=== PATIENT | female | born 1985 | race Caucasian/White ===

== ENCOUNTER 2023-08-05 19:59 | Outpatient (REF) | payer BC, SELFPAY ==
[2023-08-12 22:06] LABS: Age Gdln ACOG Testing Note (.); HPV Aptima Positive (Negative); HPV Genotype 16 Negative (Negative); HPV Genotype 18,45 Negative (Negative); IGP, Aptima HPV, rfx 16/18,45 Note (.)
== END 2023-08-05 20:00 | disposition home or self-care (01) ==
LOC: LAB 19:59
PROVIDERS: Visit Provider Obstetrics & Gynecology
DX: Z12.4 Encounter for screening for malignant neoplasm of cervix (principal)
CPT/HCPCS: 87624; 87625; G0145

== ENCOUNTER 2023-10-17 13:03 | Outpatient (OUT) | payer SELFPAY ==
--- NOTE | 2023-10-17 13:08 | XR_ITS ---
The [address] [id number] Patient Name: MOON MALIN MRN: [id number] date: 1985 Sex: F Assigned Patient Location: [facility] Current Patient Location: Accession/Order Number: [id number] Exam Date: 10/17/2023 13:25 Report Date: 10/20/2023 02:03 At the request of: ANNALEE LR Procedure: XR abdomen 1V EXAMINATION: XR abdomen 1V HISTORY: Constipation, Bloating COMPARISON: No relevant comparison available. FINDINGS: BOWEL GAS PATTERN: No abnormal dilation or deviation. CALCIFICATIONS: None significant. OTHER: IUD and surgical clips within pelvis. XR/XR abdomen 1V IMPRESSION: 1. Normal bowel gas pattern no suspicious findings. 2. No appreciable urinary tract calculi. Pelvic calcifications favor phleboliths. Electronically authenticated by: HODAN VASQUEZ Date: 10/20/2023 02:03
== END 2023-10-17 13:04 | disposition home or self-care (01) ==
LOC: RAD 13:03
PROVIDERS: Visit Provider Internal Medicine
DX: R14.0 Abdominal distension (gaseous) (principal); K59.00 Constipation, unspecified
CPT/HCPCS: 74018

== ENCOUNTER 2024-08-10 18:58 | Outpatient (REF) | payer SELFPAY ==
--- OUTSIDE RECORDS SUMMARY | 2024-08-10 19:05 | XMS_ITS | CCD ---
Demographics Address [address] [place] [address] Mobile Phone Home Phone Preferred Language en Marital Status Mormon Affiliation Unknown Race White Ethnic Group Not or Lati no Author Organization [facility] Care Team Providers Care Coal Unloader Name Role Phone TANNER ., DR CORTEZ Admitting Unavailable TANNER ., DR CORTEZ Attending Unavailable TANNER ., DR CORTEZ Consulting Unavailable TANNER ., DR CORTEZ Admitting Unavailable TANNER ., DR CORTEZ Attending Unavailable TANNER ., DR CORTEZ Consulting Unavailable Joshua JUSTICE, William Lynn Primary Care Provider Medications Current Medications Medication Drug Class(es) Dates Sig (Normalized) Sig (Original) azithromycin 250 mg oral tablet (1 source) Macrolide Antimicrobial Start: 12-12-2023 End: 12-16-2023 azithromycin (ZITHROMAX) 250 mg tablet Take 2 tablets the first day, then 1 tablet daily for 4 days. 6 tablet 0 12/12/2023 12/16/2023 Active levonorgestrel 0.946577 mg/hr intrauterine system (1 source) Progestin, Progestin-containin g Intrauterine Device levonorgestreL (MIRENA) 20 mcg/24 hours (6 yrs) 52 mg IUD 1 each by intrauterine route once. 0 Active valACYclovir 1000 mg oral tablet (1 source) Herpesvirus Nucleoside Analog DNA Polymerase Inhibitor, Herpes Simplex Virus Nucleoside Analog DNA Polymerase Inhibitor, Herpes Zoster Virus Nucleoside Analog DNA Polymerase Inhibitor Start: 07-01-2023 take 2 tablets by mouth in the morning, then take 2 tablets by mouth at bedtime valACYclovir (VALTREX) 1000 mg tablet Take 2 tablets (2,000 mg total) by mouth in the morning and 2 tablets (2,000 mg total) before bedtime. For 1 day.. 4 tablet 2 07/01/2023 Active Problems Active Problems Problem Classification Problem Date Documented Da te Episodic/Chronic Other screening for suspected conditions (not mental disorders or infectious disease) (4 sources) Encounter for screening for malignant neoplasm of cervix; Translations: [ENC SCREENING MALIG NEOPLASM CERV] Onset: 02-03-2023 Episodic Past or Other Problems Problem Classification Problem Date Documented Date Episodic/Chronic Immunizations and screening for infectious disease (1 source) Encounter for screening for human papillomavirus (HPV); Translations: [ENC SCREENING HUMAN PAPILLOMAVIRUS] Onset: 09-10-2022 Episodic Mood disorders (1 source) Mood disorders Onset: 06-19-2021 06-19-2021 Results Test Name Value Interpretation Reference Range Facil ity PAP ACOG PANEL 2: 30 to 65on 02-12-2023 . . Normal [facility] Comment on above: Result Comment: Perf ormed at: WB Performed By: #### [id number] #### [facility] [address] [address] [address] Jarad Reddy Age Gdln ACOG Testing 30- Normal [facility] Comment on above: Performed By: #### [id number] #### [facility] [address] [address] [address] Jarad Reddy DIAGNOSIS: Comment Normal [facility] Comment on above: Result Comment: NEGA TIVE FOR INTRAEPITHELIAL LESION OR MALIGNANCY. Performed at: WB Performed By: #### [id number] #### [facility] [address] [address] [address] Jarad Reddy HPV Aptima Positive Abnormal Negative [facility] Comment on above: Result Comment: This nucleic acid amplification test detects fourteen high-risk HPV types (16,18,31,33,35,39,45,51,52,56,58,59,66,68) without differentiation. Performed at: =G Performed By: #### [id number] #### [facility] [address] [address] [address] Jarad Reddy HPV Genotype 16 Negative Normal Negative [facility] Comment on above: Performed By: #### [id number] #### [facility] [address] [address] [address] Jarad Reddy HPV Genotype 18,45 Negative Normal Negative [facility] Comment on above: Performed By: #### [id number] #### [facility] [address] [address] [address] Jarad Reddy HPV Genotype Reflex Comment Normal [facility] Comment on above: Result Comment: Wilma ramirez, see HPV Genotype results. Performed at: WB Performed By: #### [id number] #### [facility] [address] [place] [address] Dr. Jarad Reddy Methodology: Comment [facility] Comment on above: Result Comment: This liquid based ThinPrep(R) pap test was screened with the use of an image guided system. Performed at: WB Performed By: #### [id number] #### [facility] [address] [place] [address] Dr. Jarad Reddy Note: Comment Normal [facility] Comment on above: Result Comment: The Pap smear is a screening test designed to aid in the detection of premalignant and malignant conditions of the uterine cervix. It is not a diagnostic procedure and should not be used as the sole means of detecting cervical cancer. Both false-positive and false-negative reports do occur. . Performed at: WB Performed By: #### [id number] #### [facility] [address] [place] [address] Dr. Jarad Reddy Performed by: Comment Normal [facility] Comment on above: Result Comment: Pastor Zepeda, Photogravure Press Operator (ASCP) Performed at: WB Performed By: #### [id number] #### [facility] [address] [place] [address] Dr. Jarad Reddy Specimen adequacy: Comment Normal [facility] Comment on above: Result Comment: Sati sfactory for evaluation. Endocervical and/or squamous metaplastic cells (endocervical component) are present. Performed at: WB Performed By: #### [id number] #### [facility] [address] [place] [address] Dr. Jarad Reddy Pap IG, rfx Aptima HPV ASCU + Ct/Ngon 09-18-2022 . . Normal [facility] Comment on above: Result Comment: Perf ormed at: WB Performed By: #### P [id number] #### [facility] [address] [place] [address] Dr. Jarad Reddy Chlamydia, Nuc. Acid Amp Negative Normal Negative [facility] Comment on above: Result Comment: Perf ormed at: =G Performed By: #### P [id number] #### [facility] [address] [place] [address] Dr. Jarad Reddy DIAGNOSIS: Comment Abnormal [facility] Comment on above: Result Comment: EPIT HELIAL CELL ABNORMALITY. ATYPICAL SQUAMOUS CELLS OF UNDETERMINED SIGNIFICANCE (ASC-US). Performed at: WB Performed By: #### P [id number] #### [facility] [address] [place] [address] Dr. Jarad Reddy Electronically signed by: Comment Normal [facility] Comment on above: Result Comment: Talia Russo MD, Pathologist Performed at: WB Performed By: #### P [id number] #### [facility] [address] [place] [address] Dr. Jarad Reddy Gonococcus, Nuc. Acid Amp Negative Normal Negative [facility] Comment on above: Result Comment: Perf ormed at: =G Performed By: #### P [id number] #### [facility] [address] [place] [address] Dr. Jarad Reddy HPV Aptima Positive Abnormal Negative [facility] Comment on above: Result Comment: This nucleic acid amplification test detects fourteen high-risk HPV types (16,18,31,33,35,39,45,51,52,56,58,59,66,68) without differentiation. Performed By: #### P [id number] #### [facility] [address] [place] [address] Dr. Jarad Reddy Methodology: Comment Normal [facility] Comment on above: Result Comment: This liquid based ThinPrep(R) pap test was screened with the use of an image guided system. Performed at: WB Performed By: #### P APHR8A #### [facility] [address] [place] [address] Dr. Jarad Reddy Note: Comment Normal [facility] Comment on above: Result Comment: The Pap smear is a screening test designed to aid in the detection of premalignant and malignant conditions of the uterine cervix. It is not a diagnostic procedure and should not be used as the sole means of detecting cervical cancer. Both false-positive and false-negative reports do occur. . Performed at: WB Performed By: #### P [id number] #### [facility] [address] [address] [address] Jarad Reddy Pathologist Provided ICD10 Comment [facility] Comment on above: Result Comment: [id number]. [id number] Performed at: WB Performed By: #### P APHR8A #### [facility] [address] [address] [address] Jarad Reddy Performed by: Comment Normal [facility] Comment on above: Result Comment: Vu Tierney, Photogravure Press Operator Performed at: BA Performed By: #### P [id number] #### [facility] [address] [address] [address] Jarad Reddy Reflex Criteria: Comment Normal [facility] Comment on above: Result Comment: See below for HPV testing results. . Performed at: WB Performed By: #### P [id number] #### [facility] [address] [address] [address] Jarad Reddy Specimen adequacy: Comment Normal [facility] Comment on above: Result Comment: Sati sfactory for evaluation. Endocervical and/or squamous metaplastic cells (endocervical component) are present. Performed at: WB Performed By: #### P [id number] #### [facility] [address] [address] [address] Jarad Reddy Encounters Encounter Date Encounter Type Care Provider Facility Start: 12-12-2023 Telephone encounter William carbone MD Work Phone: [facility] Start: 02-03-2023 End: 02-03-[address] DANA HART . Facility:[facility] Start: 09-10-2022 Encounter for cervic al smear to confirm findings of recent normal smear following initial abnormal smear DR DANA HART . [facility] Start: 09-09-2022 End: 09-09-[address] DANA HART . Facility:[facility] Start: 09-09-2022 End: 09-09-2022 Encounter for cervical smear to confirm findings of recent normal smear following initial abnormal smear DR DANA HART . Facility: Procedures Date Procedure Procedure Detail Performing Clinician Start: 06-19-2021 Adult depression screening assessment William Lewis MD Work Phone: Plan of Treatment Date Care Activity Detail Author Start: 05-29-2032 DTaP,Tdap and Td Vaccines (8 - Td or Tdap) DTaP,Tdap and Td Vaccines (8 - Td or Tdap) [facility] Start: 10-10-2024 Adult BMI Screening Adult BMI Screen ing [facility] Start: 10-10-2024 Tobacco Screening Tobacco Screening [facility] Start: 07-11-2023 COVID-19 Vaccine ( season) COVID-19 Vaccine () [facility] Start: 07-11-2023 Influenza vaccination Influenza Vacc ine [facility] Start: 06-19-2022 Depression Screening Depression Scre ening [facility] Start: 2007 Screening for malign ant neoplasm of cervix Pap Smear [facility] Immunizations Immunization Date Immunization Notes Care Provider Fa cristian 03-06-2021 COVID-19, mRNA, LNP- S, PF, 100mcg/0.5mL Dose William Lewis MD Work Phone: [facility] 02-06-2021 COVID-19, mRNA, LNP- S, PF, 100mcg/0.5mL Dose William Lewis MD Work Phone: [facility] 08-02-2015 influenza virus vaccine, unspecified formulation William Lewis MD Work Phone: [facility] Payers Date Payer Category Payer Unknown [id number] 1985 Unknown [id number] 1958 Unknown [id number] Social History Date Type Detail Facility Start: 06-19-2021 Tobacco smoking stat [facility] Never smoked tobacco [facility] Start: 06-19-2021 Tobacco use and exposure Smokeless tobacco non-user [facility] Start: 10-10-2023 Alcohol intake Current drinke r of alcohol (finding) [facility] Start: 12-21-2020 End: 10-10-2023 History of Social function [facility] Start: 12-21-2020 End: 10-10-2023 Tobacco use panel [facility] Adolescent depressio n screening assessment 0 [facility] Start: 1985 Sex Assigned At Not on file P [facility] Note 12-12-2023 Telephone Encounter - Alina Dominguez - 12/12/2023 1:42 PM ESTTelephone Encounter - William Lewis MD - 12/12/2023 1:42 PM ESTTelephone Encounter - Alina Dominguez - 12/12/2023 1:42 PM EST Note Date & Type Note Facility 12-12-2023 Miscellaneous Notes Formattin g of this note might be different from the original. Lakshmi called and is wondering if something could be called in for her since she just had her daughter Nimco Acuna in yesterday, and she thinks she has the same thing as her, she woke up with a terrible sore throat today. [facility] [place] if you can do that Please advise Script sent. Spoke with Lakshmi and she was appreciative of the call and the medicine being called in. documented in this encounter [facility] Telephone encounter Note 12-12-2023 Telephone Encounter - Alina Dominguez - 12/12/2023 1:42 PM EST Note Date & Type Note Facility 12-12-2023 Telephone encount er Note Lakshmi called and is wondering if something could be called in for her since she just had her daughter Nimco Acuna in yesterday, and she thinks she has the same thing as her, she woke up with a terrible sore throat today. [facility] [place] if you can do that Please advise [facility] Telephone encounter Note 12-12-2023 Telephone Encounter - William Lewis MD - 12/12/2023 1:42 PM EST Note Date & Type Note Facility 12-12-2023 Telephone encount er Note Script sent. [facility] Telephone encounter Note 12-12-2023 Telephone Encounter - Alina Dominguez - 12/12/2023 1:42 PM EST Note Date & Type Note Facility 12-12-2023 Telephone encounter Note Spoke with Lakshmi and she was appreciative of the call and the medicine being called in. [facility] Instructions Note Date & Type Note Facility Instructions Not on filedocumented in this en counter [facility] Summary Purpose Family History No Family History Records Found Advance Directives No Advanced Directives Records Found Additional Source Comments INFORMATION SOURCE (unrecogn ized section and content) DATE CREATED AUTHOR 03/15/2023 [facility] Teams (unrecognized sec tion and content) Coal Unloader Relationship Specialty Start Date End Date William Lewis MD [address] [place] [address], [address] [place] [address] PCP - General Pediatrics 09/28/19 FOR RECORDS PERTAINING TO PATIENTS WHO ARE OR HAVE BEEN ENROLLED IN A CHEMICAL DEPENDENCY/SUBSTANCEABUSE PROGRAM, SOME INFORMATION MAY BE OMITTED. This clinical summary was aggregated from multiple sources. Caution should be exercised in using it in the provision of clinical care. This summary normalizes information from multiple sources, and as a consequence, information in this document may materially change the coding, format and clinical context of patient data. In addition, data may be omitted in some cases. CLINICAL DECISIONS SHOULD BE BASED ON THE PRIMARY CLINICAL RECORDS. [facility]. provides no warranty or guarantee of the accuracy or completeness of information in this document.
[2024-08-17 12:13] LABS: Age Gdln ACOG Testing Note (.); HPV Aptima Positive (Negative); IGP, Aptima HPV, rfx 16/18,45 Note (.)
== END 2024-08-10 18:59 | disposition home or self-care (01) ==
LOC: LAB 18:58
PROVIDERS: Visit Provider Obstetrics & Gynecology
DX: Z01.419 Encounter for gynecological examination (general) (routine) without abnormal findings (principal)
CPT/HCPCS: 87624; 88175

== ENCOUNTER 2024-08-30 11:36 | Outpatient (REF) | payer SELFPAY ==
--- OUTSIDE RECORDS SUMMARY | 2024-09-07 11:44 | XMS_ITS | CCD ---
Author Organization [facility] Care Team Providers Care Conference Interpreter Name Role Phone WAGNER ., DR CORTEZ Admitting Unavailable WAGNER ., DR CORTEZ Attending Unavailable WAGNER ., DR CORTEZ Consulting Unavailable WAGNER ., DR CORTEZ Admitting Unavailable WAGNER ., DR CORTEZ Attending Unavailable WAGNER ., DR CORTEZ Consulting Unavailable William Lewis MD Primary Care Provider William Lewis MD Primary Care Provider [phone] DANA EDWARD Attending Unavailable DANA EDWARD Attending Unavailable Medications Current Medications Medication Drug Class(es) Dates Sig (Normalized) Sig (Original) azithromycin 250 mg oral tablet (1 source) Macrolide Antimicrobial Start: 12-12-2023 End: 12-16-2023 azithromycin (ZITHROMAX) 250 mg tablet Take 2 tablets the first day, then 1 tablet daily for 4 days. 6 tablet 0 12/12/2023 12/16/2023 Active levonorgestrel 0.930927 mg/hr intrauterine system (1 source) Progestin, Progestin-containin [...] Classification Problem Date Documented Da te Episodic/Chronic Cancer of cervix (1 source) Atypical squamous cells of undetermined significance on cervical Papanicolaou smear; Translations: [Atypical squamous cells of undetermined significance on cytologic smear of cervix (ASC-US)] 08-30-2024 Episodic Other screening for suspected conditions (not mental [...] Results Test Name Value Interpretation Reference Range Facility Colposcopyon 08-31-2024 Dana Edward DO 08/31/2024 9:22 AM Colposcopy Date/Time: 08/31/2024 8:51 AM Performed by: Dana Edward DO Authorized by: Dana Edward DO Procedure location: cervix Consent: Patient questions answered: yes Risks and benefits of the procedure and its alternatives discussed: yes Procedural risks discussed: Bleeding and repeat procedure Consent obtained: Written Consent given by: Patient Indication: Cervical indication(s): HPV 16 and ASCUS Pre-procedure: Speculum was placed in the vagina: yes Prep solution(s): acetic acid Procedure: Colposcopy with: colposcopy only and endocervical curettage Biopsy taken: no Cervix visibility: fully visualized Cervical impression: normal/benign Ferric subsulfate solution applied: no Tampon inserted: no Post-procedure: Patient tolerance of procedure: Patient tolerated the procedure well with no immediate complications Instructions and paperwork completed: yes Educational handouts given: no [facility] HCG ( test) Ql (U)o n 08-30-2024 Interpretation and review of laboratory results Normal [facility] Preg Test, Ur Negative [facility] IGP,APTIMA HPV,AGE GDLNon AGE GDLN ACOG TESTING Note . [facility] Comment on above: TESTS RESULT FLAG UN ITS REF RANGE LAB Clinician Provided Cytology Information Source.............Cervix;Endocervix No. of containers..01 ThinPrep Vial Age Odello GOODOG Sonia... 31 01 FLAG LEGEND: L-Low Normal,H-High Normal,LL-Alert Low,HH-Alert High <-Panic Low,>-Panic High,A-Abnormal,AA-Critical Abnormal Performed at: 01 =G [address] [address] Lyubov Preciado MD, HPV APTIMA Positive Abnormal Negative [facility] Comment on above: This nucleic acid am plification test detects fourteen high- risk HPV types (16,18,31,33,35,39,45,51,52,56,58,59,66,68) without differentiation. Performed at: =G - [address] [id number] Digital Product Specialist: Lyubov Preciado MD, Phone: [phone] Performed at: - [address] [id number] Digital Product Specialist: Lyubov Preciado MD, Phone: [phone] IGP, APTIMA HPV, RFX 16/18,45 Note Abnormal . [facility] Comment on above: TESTS RESULT FLAG UN ITS REF RANGE LAB DIAGNOSIS: [A] 02 EPITHELIAL CELL ABNORMALITY. ATYPICAL SQUAMOUS CELLS OF UNDETERMINED SIGNIFICANCE (ASC-US). Recommendation: [A] 02 Suggest follow up as clinically appropriate. Specimen adequacy: 02 Satisfactory for evaluation. Endocervical and/or squamous metaplastic cells (endocervical component) are present. Performed by: 02 Erickson Zepeda, Family And Consumer Science Professor (ASC) Electronically si... Tony Pandya MD, Pathologist . 02 Pathologist ICD10: 02 R87.610 Note: Note 02 The Pap smear is a screening test designed to aid in the detection of premalignant and malignant conditions of the uterine cervix. It is not a diagnostic procedure and should not be used as the sole means of detecting cervical cancer. Both false-positive and false-negative reports do occur. Test Methodology: Note 02 This liquid based ThinPrep(R) pap test was screened with the use of an image guided system. HPV Genotype Reflex Note 02 Criteria not met, HPV Genotype not performed. FLAG LEGEND: L-Low Normal,H-High Normal,LL-Alert Low,HH-Alert High <-Panic Low,>-Panic High,A-Abnormal,AA-Critical Abnormal Performed at: [address] [place] [address] Lyubov Preciado MD, Interpretation and review of laboratory results Abnormal [facility] BRUSH-SPATULA CERVIX ENDOCERVIX [facility] PAP ACOG PANEL 2: 30 to 65on 02-12-2023 . . Normal [facility] Comment on above: Result Comment: Perf ormed at: WB Performed By: #### [id number] #### [facility] Laboratory [address] [address] [address] Jarad Reddy Age Gdln ACOG Testing 30-65 Normal [facility] Comment on above: Performed By: #### [id number] #### [facility] [address] [address] [address] Jarad Reddy DIAGNOSIS: Comment Normal [facility] Comment on above: Result Comment: NEGA TIVE FOR INTRAEPITHELIAL LESION OR MALIGNANCY. Performed at: WB Performed By: #### 4 [id number] #### [facility] [address] [address] [address] Jarad Reddy HPV Aptima Positive Abnormal Negative [facility] Comment on above: Result Comment: This nucleic acid amplification test detects fourteen high-risk HPV types (16,18,31,33,35,39,45,51,52,56,58,59,66,68) without differentiation. Performed at: =G Performed By: #### 4 [id number] #### [facility] [address] [address] [address] Jarad Reddy HPV Genotype 16 Negative Normal Negative [facility] Comment on above: Performed By: #### 4 [id number] #### [facility] [address] [address] [address] Jarad Reddy HPV Genotype 18,45 Negative Normal Negative [facility] Comment on above: Performed By: #### 4 [id number] #### [facility] [address] [address] [address] Jarad Reddy HPV Genotype Reflex Comment Normal [facility] Comment on above: Result Comment: Wilma ramirez, see HPV Genotype results. Performed at: WB Performed By: #### 4 [id number] #### [facility] [address] [address] [address] Jarad Reddy Methodology: Comment Normal [facility] Comment on above: Result Comment: This liquid based ThinPrep(R) pap test was screened with the use of an image guided system. Performed at: WB Performed By: #### [id number] #### [facility] [address] [place] [address] Dr. Jarad Reddy Note: Comment Normal [facility] Comment on above: Result Comment: The Pap smear is a screening test designed to aid in the detection of premalignant and malignant conditions of the uterine cervix. It is not a diagnostic procedure and should not be used as the sole means of detecting cervical cancer. Both false-positive and false-negative reports do occur. . Performed at: WB Performed By: #### [id number] #### [facility] [address] [place] [address] Dr. Jarad Reddy Performed by: Comment Normal [facility] Comment on above: Result Comment: Pastor Zepeda, Family And Consumer Science Professor (ASCP) Performed at: WB Performed By: #### 4 [id number] #### [facility] [address] [place] [address] Dr. Jarad Reddy Specimen adequacy: Comment Normal [facility] Comment on above: Result Comment: Sati sfactory for evaluation. Endocervical and/or squamous metaplastic cells (endocervical component) are present. Performed at: WB Performed By: #### 4 [id number] #### [facility] [address] [place] [address] Dr. Jarad Reddy Pap IG, rfx Aptima HPV ASCU + Ct/Ngon 09-18-2022 . . Normal [facility] Comment on above: Result Comment: Perf ormed at: WB Performed By: #### P APHR8A #### [facility] [address] [place] [address] Dr. Jarad Reddy Chlamydia, Nuc. Acid Amp Negative Normal Negative [facility] Comment on above: Result Comment: Perf ormed at: =G Performed By: #### P APHR8A #### [facility] [address] [place] [address] Dr. Jarad Reddy DIAGNOSIS: Comment Abnormal [facility] Comment on above: Result Comment: EPIT HELIAL CELL ABNORMALITY. ATYPICAL SQUAMOUS CELLS OF UNDETERMINED SIGNIFICANCE (ASC-US). Performed at: WB Performed By: #### P APHR8A #### [facility] [address] [place] [address] Dr. Jarad Reddy Electronically signed by: Comment Normal [facility] Comment on above: Result Comment: Talia Russo MD, Pathologist Performed at: WB Performed By: #### P APHR8A #### [facility] [address] [place] [address] Dr. Jarad Reddy Gonococcus, Nuc. Acid Amp Negative Normal Negative [facility] Comment on above: Result Comment: Perf ormed at: =G Performed By: #### P APHR8A #### [facility] [address] [place] [address] Dr. Jarad Reddy HPV Aptima Positive Abnormal Negative [facility] Comment on above: Result Comment: This nucleic acid amplification test detects fourteen high-risk HPV types (16,18,31,33,35,39,45,51,52,56,58,59,66,68) without differentiation. Performed By: #### P APHR8A #### [facility] [address] [place] [address] Dr. Jarad Reddy Methodology: Comment Normal [facility] Comment on above: Result Comment: This liquid based ThinPrep(R) pap test was screened with the use of an image guided system. Performed at: WB Performed By: #### P APHR8A #### [facility] [address] [place] [address] Dr. Jarad Reddy Note: Comment Normal [facility] Comment on above: Result Comment: The [...] WB Performed By: #### P APHR8A #### [facility] [address] [place] [address] Dr. Jarad Reddy Pathologist Provided ICD10 Comment Normal [facility] Comment on above: Result Comment: R87. 610 Performed at: WB Performed By: #### P APHR8A #### [facility] [address] [place] [address] Dr. Jarad Reddy Performed by: Comment Normal [facility] Comment on above: Result Comment: Vu Tierney, Family And Consumer Science Professor Performed at: BA Performed By: #### P APHR8A #### [facility] [address] [address] [address] Jarad Reddy Reflex Criteria: Comment Normal [facility] Comment on above: Result Comment: See below for HPV testing results. . Performed at: WB Performed By: #### P APHR8A #### [facility] [address] [address] [address] Jarad Reddy Specimen adequacy: Comment Normal [facility] Comment on above: Result Comment: Sati sfactory for evaluation. Endocervical and/or squamous metaplastic cells (endocervical component) are present. Performed at: WB Performed By: #### P APHR8A #### [facility] [address] [address] [address] Jarad Reddy Vital Signs Date Time Vital Sign Value Performing Clinician Faci lity 08-30-2024 16:25-0400 Body mass index (BMI) [Ratio] 23.63 kg/m2 Dana Wagner DO Work Phone: [facility] 08-30-2024 16:25-0400 Body weight 64.41 kg Dana Wagner DO Work Phone: [facility] 08-30-2024 16:25-0400 Diastolic blood pressure 72 mm[Hg] Dana Wagner DO Work Phone: [facility] 08-30-2024 16:25-0400 Systolic blood pressure 122 mm[Hg] Dana Wagner DO Work Phone: [facility] 08-10-2024 15:20-0400 Body height 165.1 cm Dana Wagner DO Work Phone: [facility] 08-10-2024 15:20-0400 Body mass index (BMI) [Ratio] 22.47 kg/m2 Dana Wagner DO Work Phone: [facility] 08-10-2024 15:20-0400 Body weight 61.24 kg Dana Wagner DO Work Phone: [facility] 08-10-2024 15:20-0400 Diastolic blood pressure 82 mm[Hg] Dnaa Wagner DO Work Phone: [facility] 08-10-2024 15:20-0400 Systolic blood pressure 122 mm[Hg] Dana Wagner DO Work Phone: [facility] Encounters Encounter Date Encounter Type Care Provider Facility Start: 08-30-2024 End: 08-30-2024 Patient encounter procedure Dana Wagner DO Work Phone: [facility] Comment on above: ASCUS with positive high risk HPV cervical Start: 08-30-2024 End: 08-30-2024 ambulatory DANA WAGNER Not Available Start: 08-17-2024 End: 08-17-2024 Telephone encounter Bambi Sigala HENRI Work Phone: [facility] Start: 08-10-2024 End: 08-10-2024 Patient encounter procedure Dana Wagner DO Work Phone: [facility] Start: 08-10-2024 End: 08-10-2024 Periodic preventive med est patient 18-39 yrs Dana Wagner DO Work Phone: [facility] Comment on above: Well woman exam with routine gynecological exam Start: 08-10-2024 End: 08-10-2024 ambulatory DANA WAGNER Not Available Start: 08-10-2024 End: 08-17-2024 [facility] Result Encounter Dana Wagner DO Work Phone: [facility] External Department Unsolicited Start: 08-10-2024 End: 08-17-2024 [facility] Result Encounter Dana Wagner DO Work Phone: [facility] Unsolicited Start: 12-12-2023 Telephone encounter William carbone MD Work Phone: [facility] Start: 02-03-2023 End: 02-03-[address] DANA EDWARD . Facility: Start: 11-01-2022 Encounter for cervic al smear to confirm findings of recent normal smear following initial abnormal smear DR DANA EDWARD . [facility] Start: 09-09-2022 End: 09-09-[address] DANA EDWARD . Facility: Start: 09-09-2022 End: 09-09-2022 Encounter for cervical smear to confirm findings of recent normal smear following initial abnormal smear DR DNAA EDWARD . Facility:[facility]1 Procedures Date Procedure Procedure Detail Performing Clinician Start: 08-31-2024 COLPOSCOPY Dana Anjalipablo medina DO Work Phone: Start: 08-30-2024 Urine test visual color cmprsn meths Dana Cerdao DO Work Phone: Start: 08-10-2024 IGP,APTIMA HPV,AGE GDLN Dana Cerdao DO Work Phone: Start: 08-10-2024 Microscopic observat ion [Identifier] in Cervix by Cyto stain Dana Wagner DO Work Phone: Start: 06-19-2021 Adult depression scr eening assessment William Lewis MD Work Phone: Plan of Treatment Date Care Activity Detail Author Start: 05-29-2032 DTaP,Tdap and Td Vaccines (8 - Td or Tdap) DTaP,Tdap and Td Vaccines (8 - Td or Tdap) [facility] Start: 08-10-2027 Screening for malign ant neoplasm of cervix [facility] Start: 08-17-2025 End: 08-17-2025 Patient encounter procedure 08/17/2025 3:00 PM EDT Office Visit [facility] [address] [place] [address] Dana Edward, DO [address] [place] [address] [facility] Start: 03-01-2025 End: 03-01-2025 Patient encounter procedure 03/01/2025 1:00 PM EDT Office Visit [facility] [address] [place] [address] Dana Edward, DO [address] [place] [address] Dr [place] [address] [facility] Start: 10-10-2024 Adult BMI Screening Adult BMI Screen ing [facility] Start: 10-10-2024 Tobacco Screening Tobacco Screening [facility] Start: 08-30-2024 End: 08-30-2025 Colposcopy Colposcopy Procedures Routine ASCUS with positive high risk HPV cervical Expected: 08/30/2024 (Approximate), Expires: 08/30/2025 [facility] Work Phone: Comment on above: Expected: 08/30/2024 (Approximate), Expires: 08/30/2025 Start: 07-11-2024 Influenza vaccination Influenza Vacc ine (#1) [facility] Start: 07-11-2023 COVID-19 Vaccine () COVID-19 Vaccine () [facility] Start: 07-11-2023 Influenza vaccination Influenza Vacc ine [facility] Start: 06-19-2022 Depression Screening Depression Scre ening [facility] Start: 2016 Screening for malign ant neoplasm of cervix [facility] Start: 2007 Screening for malign ant neoplasm of cervix Pap Smear [facility] Cytology Cervical or vaginal smear or scraping study Pap Smear Pathology and Cytology Routine Well woman exam with routine gynecological exam Ordered: 08/10/2024 [facility] Work Phone: Comment on above: Ordered: 08/10/2024 Human papilloma viru s DNA [Presence] in Unspecified specimen by Probe with amplification HPV DNA probe, amplified Microbiology Routine Well woman exam with routine gynecological exam Ordered: 08/10/2024 [facility] Comment on above: Ordered: 08/10/2024 Immunizations Immunization Date Immunization Notes Care Provider Anjali foster 03-06-2021 COVID-19, mRNA, LNP- S, PF, 100mcg/0.5mL Dose William Lewis MD Work Phone: [facility] 02-06-2021 COVID-19, mRNA, LNP- S, PF, 100mcg/0.5mL Dose William Lewis MD Work Phone: [facility] 08-02-2015 influenza virus vaccine, unspecified formulation William Lewis MD Work Phone: [facility] Payers Date Payer Category Payer Unknown [id number] 1985 Unknown [id number] 1958 Unknown [id number] Social History Date Type Detail Facility Start: 06-19-2021 Tobacco smoking status [facility] Never smoked tobacco [facility] Start: 06-19-2021 End: 08-10-2024 Tobacco use and exposure Smokeless tobacco non-user [facility] Start: 10-10-2023 Alcohol intake Current drinker of alcohol (finding) [facility] Start: 10-10-2023 End: 08-10-2024 History of Social function [facility] Start: 10-10-2023 End: 08-10-2024 Tobacco use panel [facility] Adolescent depressio n screening assessment 0 [facility] Start: 1985 Sex Assigned At Not on file [facility] Start: 08-10-2024 Tobacco smoking status [facility] Ex-smoker [facility] End: 11-10-2017 History of tobacco use Current smoker [facility] End: 11-10-2017 History of tobacco use Cigarette Smoker [facility] Start: 08-10-2024 End: 08-30-2024 Alcoholic beverage intake Lifetime non-drinker (finding) [facility] Start: 1985 Sex assigned at Female [facility] Start: 08-03-2023 Gender identity Identifies as female gender (finding) [facility] Start: 08-03-2023 Sexual orientation Heterosexual (finding) [facility] Clinical Notes 12-12-2023 to 08-30-2024 Dana Edward DO - 08/30/2024 3:30 PM EDTTelephone Encounter - Bambi Sigala LPN - 08/17/2024 12:58 PM EDTTelephone Encounter - Bambi Sigala, SENIOR INFRASTRUCTURE ENGINEER - 08/17/2024 12:58 PM EDT Note Date & Type Note Facility 08-30-2024 History of Presen t illness Narrative Associated Order(s): Colposcopy Post-Procedure Diagnose(s): ASCUS with positive high risk HPV cervical Reason for Appointment: Patient ID: February Anuj Camilo is a 39 y.o. female who presents for Abnormal Pap Smear (Pt present today for a Colposcopy visit. Pt had an abnormal pap smear on 08/10/2024 w/ASCUS HPV+) Patient presents today for a Colposcopy appointment. MEDICATIONS No current outpatient medications ALLERGIES No Known Allergies SURGICAL HISTORY Past Surgical History: Procedure Laterality Date CERVICAL BIOPSY W/ LOOP ELECTRODE EXCISION 2010 PAP SMEAR 01/29/2022 ASCUS HPV+ REVIEW OF SYSTEMS Review of Systems: Review of Systems All other systems reviewed and are negative. OBJECTIVE Objective: Physical Exam Constitutional: Appearance: Normal appearance. She is well-developed. Genitourinary: Vulva normal. Cardiovascular: Rate and Rhythm: Normal rate and regular rhythm. Pulmonary: Effort: Pulmonary effort is normal. Breath sounds: Normal breath sounds. Abdominal: General: Bowel sounds are normal. There is no distension. Palpations: Abdomen is soft. Tenderness: There is no abdominal tenderness. There is no guarding or rebound. Musculoskeletal: General: No swelling. Normal range of motion. Right lower leg: No edema. Left lower leg: No edema. Neurological: Mental Status: She is alert and oriented to person, place, and time. Skin: General: Skin is warm and dry. Psychiatric: Mood and Affect: Mood normal. Behavior: Behavior normal. Vitals and nursing note reviewed. Exam conducted with a director medicare sales present. Vitals: Estimated body mass index is 23.63 kg/m as calculated from the following: Height as of 24: 5' 5 . Weight as of this encounter: 142 lb. BP: 122/72 No LMP recorded (lmp unknown). ASSESSMENT & PLAN Assessment/Plan Encounter Diagnosis: ICD-10-CM 1. ASCUS with positive high risk HPV cervical R87.610 Colposcopy R87.810 POCT , urine manually resulted Colposcopy Date/Time: 08/31/2024 8:51 AM Performed by: Dana Edward DO Authorized by: Dana Edward DO Procedure location: cervix Consent: Patient questions answered: yes Risks and benefits of the procedure and its alternatives discussed: yes Procedural risks discussed: Bleeding and repeat procedure Consent obtained: Written Consent given by: Patient Indication: Cervical indication(s): HPV 16 and ASCUS Pre-procedure: Speculum was placed in the vagina: yes Prep solution(s): acetic acid Procedure: Colposcopy with: colposcopy only and endocervical curettage Biopsy taken: no Cervix visibility: fully visualized Cervical impression: normal/benign Ferric subsulfate solution applied: no Tampon inserted: no Post-procedure: Patient tolerance of procedure: Patient tolerated the procedure well with no immediate complications Instructions and paperwork completed: yes Educational handouts given: no Colposcopy: Patient is doing well and has no complaints. Pap results have been reviewed with the patient in great detail and patient voiced understanding. Patient presents today for a Colposcopy with ECC. Patient was placed in dorsal lithotomy position with feet in stirrups, a sterile speculum was placed into the vagina and the cervix was visualized. Cervix was cleansed with vinegar. Postprocedural instructions given. All if patients questions answered and she expressed understanding. Advised to call in interim with questions or concerns. Patient is [facility] and paperwork was sent with sample to [facility] with sample. Follow Up: Patient is to return in 6 months for Repeat Pap. Documented by Natalia Campos LPN on behalf of: Dana Edward DO documented in this encounter [facility] 08-17-2024 Telephone encounter Note Pt called wanting to know if we had gotten her PAP results back yet. I called pt back and we went over results. I explained that this abnormality is at the bottom of the staircase of abnormal paps and that I would send Dr. Edward a message to see what he would like to do going forward. I did let pt know that he is on vacation so I will probably not hear back until Friday.PVU [facility] Work Phone: 08-17-2024 Miscellaneous Notes Pt called wanting to know if we had gotten her PAP results back yet. I called pt back and we went over results. I explained that this abnormality is at the bottom of the staircase of abnormal paps and that I would send Dr. Edward a message to see what he would like to do going forward. I did let pt know that he is on vacation so I will probably not hear back until Friday.PVU documented in this encounter [facility] 08-10-2024 History of Presen t illness Narrative Reason for Appointment: Patient ID: Lakshmi Anuj Camilo is a 39 y.o. female who presents for Well Women Visit Patient presents today for Annual Exam. 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 HENT: Negative. Eyes: Negative. Respiratory: Negative. Cardiovascular: Negative. Gastrointestinal: Negative. Genitourinary: Negative. Musculoskeletal: Negative. Skin: Negative. Neurological: Negative. All other systems reviewed and are negative. Hematological: Negative. Endocrine: Negative. Allergic/Immunologic: Negative. OBJECTIVE Objective: Physical Exam Constitutional: Appearance: Normal appearance. She is well-developed. Genitourinary: Vulva normal. Breasts: Breasts are soft. Right: Normal. Left: Normal. Cardiovascular: Rate and Rhythm: Normal rate and regular rhythm. Pulmonary: Effort: Pulmonary effort is normal. Breath sounds: Normal breath sounds. Abdominal: General: Bowel sounds are normal. There is no distension. Palpations: Abdomen is soft. Tenderness: There is no abdominal tenderness. There is no guarding or rebound. Musculoskeletal: General: No swelling. Normal range of motion. Right lower leg: No edema. Left lower leg: No edema. Neurological: Mental Status: She is alert and oriented to person, place, and time. Skin: General: Skin is warm and dry. Psychiatric: Mood and Affect: Mood normal. Behavior: Behavior normal. Vitals and nursing note reviewed. Exam conducted with a director medicare sales present. Vitals: Estimated body mass index is 22.47 kg/m as calculated from the following: Height as of this encounter: 5' 5 . Weight as of this encounter: 135 lb. BP: 122/82 No LMP recorded (lmp unknown). ASSESSMENT & PLAN ICD-10-CM 1. Well woman exam with routine gynecological exam Z01.419 Pap Smear HPV DNA probe, amplified Annual Exam: Patient presents today for an annual exam. Patient states she is doing well and has no complaints. Pap was obtained without difficulty. Orders Placed This Encounter Procedures HPV DNA probe, amplified Follow Up: Patient is to return in one year for annual unless needed otherwise. Documented by Saskia Jama LPN on behalf of: Dana Edward DO documented in this encounter [facility] 12-12-2023 Miscellaneous Notes February called and is wondering if something could be called in for her since she just had her daughter Nimco Acuna in yesterday, and she thinks she has the same thing as her, she woke up with a terrible sore throat today. [facility] [place] if you can do that Please advise Script sent. Spoke with Lakshmi and she was appreciative of the call and the medicine being called in. documented in this encounter [facility] 12-12-2023 Telephone encounter Note Lakshmi called and is wondering if something could be called in for her since she just had her daughter Nimco Acuna in yesterday, and she thinks she has the same thing as her, she woke up with a terrible sore throat today. [facility] [place] if you can do that Please advise [facility] 12-12-2023 Telephone encounter Note Script sent. [facility] 12-12-2023 Telephone encounter Note Spoke with Lakshmi and she was appreciative of the call and the medicine being called in. [facility] Evaluation note Diagnosis Well woman exam with routine gynecological exam Routine gynecological examination documented [facility] Diagnosis ASCUS with positive high risk HPV cervical documented in this encounter [facility] HealthcareInstructionsNot on filedocumented in [facility] Summary Purpose Family History No Family History Records FoundNo Family History Records Found Advance Directives No Advanced Directives Records FoundNo Advanced Directives Records Found Additional Source Comments INFORMATION SOURCE (unrecogn ized section and content) DATE CREATED AUTHOR 03/15/2023 [facility] DATE CREATED AUTHOR AUTHOR'S ORGANIZ ATION 09/01/2024 [facility] Care Teams (unrecognized sec tion and content) Conference Interpreter Relationship Specialty Start Date End Date William Lewis MD [address] [place] [address], [address] [place] [address] PCP - General Pediatrics 09/28/19 Conference Interpreter Relationship Specialty Start Date End Date William Lewis MD [address] [place] [address], [address] [place] [address] PCP - General Family Medicine 08/05/23 Conference Interpreter Relationship Specialty Start Date End Date William Lewis MD [address] [place] [address], [address] [place] [address] PCP - General Family Medicine 08/05/23 Conference Interpreter Relationship Specialty Start Date End Date William Lewis MD [address] [place] [address], [address] [place] [address] PCP - General Family Medicine 08/05/23 Conference Interpreter Relationship Specialty Start Date End Date William Lewis MD [address] [place] [address], [address] [place] [address] PCP - General Family Medicine 08/05/23 Reason for Visit (unrecogniz ed section and content) Reason Comments Well Women Visit Reason Comments Abnormal Pap Smear Pt present today for a Colposcopy visit. Pt had an abnormal pap smear on 08/10/2024 w/ASCUS HPV+ FOR RECORDS PERTAINING TO PATIENTS WHO ARE [...] BE BASED ON THE PRIMARY CLINICAL RECORDS. [employer] [facility]. provides no warranty or guarantee of the accuracy or completeness of information in this document.
== END 2024-08-30 11:37 | disposition home or self-care (01) ==
LOC: LAB 11:36
PROVIDERS: Visit Provider Obstetrics & Gynecology
DX: A63.0 Anogenital (venereal) warts (principal)

== ENCOUNTER 2025-03-01 19:55 | Outpatient (REF) | payer BC, SELFPAY ==
[2025-03-08 22:11] LABS: HPV Aptima Positive (Negative); Pap IG (Image Guided) Note (.)
== END 2025-03-01 19:56 | disposition home or self-care (01) ==
LOC: LAB 19:55
PROVIDERS: Visit Provider Obstetrics & Gynecology
DX: R87.610 Atypical squamous cells of undetermined significance on cytologic smear of cervix (ASC-US) (principal); R87.810 Cervical high risk human papillomavirus (HPV) DNA test positive
CPT/HCPCS: 87624; 88175

== ENCOUNTER 2025-08-29 20:28 | Outpatient (REF) | payer BC, SELFPAY ==
--- OUTSIDE RECORDS SUMMARY | 2025-08-29 20:34 | XMS_ITS | CCD ---
Author Organization [facility] Care Team Providers Care Tie Man Name Role Phone WAGNER ., DR CORTEZ Admitting Unavailable WAGNER ., DR CORTEZ Attending Unavailable WAGNER ., DR CORTEZ Consulting Unavailable WAGNER ., DR CORTEZ Admitting Unavailable WAGNER ., DR CORTEZ Attending Unavailable WAGNER ., DR CORTEZ Consulting Unavailable Annalee Lr MD Primary Care Provider Annalee Lr MD Primary Care Provider Annalee Lr MD Primary Care Provider ADNA EDWARD Attending Unavailable DANA EDWARD Attending Unavailable DANA EDWARD Attending Unavailable Annalee Lr MD Primary Care Provider ANNALEE LR Attending ANNALEE Hough Referring Unavailable ANNALEE LR Primary Care Unavailable ANNALEE LR Attending ANNALEE Hough Referring Unavailable ANNALEE LR Primary Care Unavailable Medications Current Medications Medication Drug Class(es) Dates Sig (Normalized) Sig (Original) azithromycin 250 mg oral tablet (1 source) Macrolide Antimicrobial Start: 12-12-2023 End: 12-16-2023 azithromycin (ZITHROMAX) 250 mg tablet Take 2 tablets the first day, then 1 tablet daily for 4 days. 6 tablet 0 12/12/2023 12/16/2023 Active levonorgestrel 0.258487 mg/hr intrauterine system (8 sources) Progestin, Progestin-containin g Intrauterine Device Levonorgestrel (Mirena, 52 MG,) 20 MCG/DAY intrauterine device 53 mg by Intrauterine route if needed (every 5 years) Active levonorgestreL ( MIRENA) 20 mcg/24 hours (6 yrs) 52 mg IUD 1 each by intrauterine route once. Active ondansetron 4 mg disintegrating oral tablet (1 source) Serotonin-3 Receptor Antagonist Start: 04-29-2025 take 1 tablet by mouth every six hours as needed for nausea and vomiting and nausea and nausea ondansetron ODT (ZOFRAN ODT) 4 mg disintegrating tablet Indications: Nausea Dissolve 1 tablet (4 mg total) on tongue every 6 (six) hours as needed for nausea or vomiting. 10 tablet 04/29/2025 Active valACYclovir 1000 mg oral tablet (3 sources) Herpesvirus Nucleoside Analog DNA Polymerase Inhibitor, Herpes [...] Documented Da te Episodic/Chronic Cancer of cervix (4 sources) Atypical squamous cells of undetermined significance on cervical Papanicolaou smear; Translations: [Atypical squamous cells of undetermined significance on cytologic smear of cervix (ASC-US)] 08-30-2024 Episodic Headache; including migraine (1 source) Headache Onset: 04-29-2025 Episodic Malaise and fatigue (1 source) Fatigue Onset: 04-29-2025 Episodic Nausea and vomiting (3 sources) Nausea; Translations: [Nausea] Onset: 04-29-2025 04-29-2025 Episodic Other screening for suspected conditions (not mental disorders or infectious disease) (4 sources) Encounter for screening for malignant neoplasm of cervix; Translations: [ENC SCREENING MALIG NEOPLASM CERV] Onset: 02-03-2023 Episodic Other skin disorders (1 source) Sebaceous cyst of skin; Translations: [Sebaceous cyst] 12-24-2024 Episodic Unclassified (1 source) Mass Onset: 12-24-2024 Past or Other Problems Problem Classification Problem Date Documented Date Episodic/Chronic Immunizations and screening for infectious disease (1 source) Encounter for screening for human papillomavirus (HPV); Translations: [ENC SCREENING HUMAN PAPILLOMAVIRUS] Onset: 09-10-2022 Episodic Mood disorders (3 sources) Mood disorders Onset: 06-19-2021 06-19-2021 Other skin disorders (1 source) Sebaceous cyst; Translations: [Sebaceous cyst] Onset: 12-24-2024 Episodic Results Test Name Value Interpretation Reference Range Facility [facility] IGP,RFX APTIMA HPV ALL P THon 03-08-2025 HPV APTIMA Positive Abnormal Negative [facility] e Comment on above: This nucleic acid am plification test detects fourteen high- risk HPV types (16,18,31,33,35,39,45,51,52,56,58,59,66,68) without differentiation. Performed at: - [facility] [id number] Pigment Mixer: Lyubov Preciado MD, Phone: [phone] Performed at: = - [facility] [id number] Pigment Mixer: Lyubov Preciado MD, Phone: [phone] Interpretation and review of laboratory results Abnormal [facility] PAP IG (IMAGE GUIDED) Note Abnormal . [facility] Comment on above: TESTS RESULT FLAG UN ITS REF RANGE LAB Clinician Provided Cytology Information Source.............Cervix;Endocervix No. of containers..01 ThinPrep Vial DIAGNOSIS: [A] 01 EPITHELIAL CELL ABNORMALITY. LOW GRADE SQUAMOUS INTRAEPITHELIAL LESION (LSIL). Recommendation: [A] 01 Suggest follow up as clinically appropriate. Specimen adequacy: 01 Satisfactory for evaluation. Endocervical and/or squamous metaplastic cells (endocervical component) are present. Performed by: Mark Pennington, Switch Engineer (ASCP) Electronically si... Vanessa Diaz MD, Pathologist . 01 Pathologist ICD10: R87.612 Note: Note 01 The Pap smear is a screening test designed to aid in the detection of premalignant and malignant conditions of the uterine cervix. It is not a diagnostic procedure and should not be used as the sole means of detecting cervical cancer. Both false-positive and false-negative reports do occur. Test Methodology: Note 01 This liquid based ThinPrep(R) pap test was screened with the use of an image guided system. . 01 See below for HPV testing results. FLAG LEGEND: L-Low Normal,H-High Normal,LL-Alert Low,HH-Alert High <-Panic Low,>-Panic High,A-Abnormal,AA-Critical Abnormal Performed at: [address] [phone] Lyubov Preciado MD, BRUSH-SPATULA CERVIX ENDOCERVIX [facility] HCG ( test) Ql (U)o n 03-01-2025 Interpretation and review of laboratory results Normal [facility] Preg Test, Ur Negative Negative [facility] [employer] [facility] [employer] Health[facility] e Urinalysis macro (dipstick) panel (U)on 03-01-2025 Bilirubin, UA Negative Negative - 4(70) +++ mg/dL [facility] Blood, UA Negative Negative - 50 Mingo/mcL [facility] Shout[employer] Clarity, UA Clear [facility] [employer]oh re Color, UA Yellow [facility] Glucose, UA Negative Negative - 1999(110) ++++ mg/dL [facility] Interpretation and review of laboratory results Normal [facility] Ketones, UA Negative Negative - 160(16) ++++ mg/dL [facility] Leukocytes, UA Negative Negative - 500+++ Milka/mcL [facility] Nitrite, UA Negative Negative - Positive [facility] pH, UA 6.5 5 - 9 [facility] Phrazit e Protein, UA Negative Negative - 1999(20) ++++ mg/dL [facility] Spec Grav, UA 1.02 1 - 1.03 [facility] Urobilinogen, UA 0.2 0.2 - 12 mg/dL [facility] Colposcopyon 08-31-2024 Dana Edward DO 08/31/2024 9:22 [...] paperwork completed: yes Educational handouts given: no [facility] Phrazit e HCG ( test) Ql (U)o n 08-30-2024 Interpretation and review of laboratory results Normal [facility] Preg Test, Ur Negative [facility] Phrazit e IGP,APTIMA HPV,AGE GDLNon AGE GDLN ACOG TESTING Note . [facility] Comment on above: TESTS RESULT FLAG UN ITS REF RANGE LAB Clinician Provided Cytology Information Source.............Cervix;Endocervix No. of containers..01 ThinPrep Vial Age Algo ACOG Sonia... FLAG LEGEND: L-Low Normal,H-High Normal,LL-Alert Low,HH-Alert High <-Panic Low,>-Panic High,A-Abnormal,AA-Critical Abnormal Performed at: 01 =[address] [address] Lyubov Preciado MD, HPV APTIMA Positive Abnormal Negative [facility] Comment on above: This nucleic acid am plification test detects fourteen high- risk HPV types (16,18,31,33,35,39,45,51,52,56,58,59,66,68) without differentiation. Performed at: =[facility] [id number] Pigment Mixer: Lyubov Preciado MD, Phone: [phone] Performed at: [facility] [id number] Pigment Mixer: Lyubov Preciado MD, Phone: [phone] IGP, APTIMA HPV, RFX 16/18,45 Note Abnormal . [facility] Comment on above: TESTS RESULT FLAG UN ITS REF RANGE LAB DIAGNOSIS: [A] 02 EPITHELIAL CELL ABNORMALITY. ATYPICAL SQUAMOUS CELLS OF UNDETERMINED SIGNIFICANCE (ASC-US). Recommendation: [A] 02 Suggest follow up as clinically appropriate. Specimen adequacy: 02 Satisfactory for evaluation. Endocervical and/or squamous metaplastic cells (endocervical component) are present. Performed by: 02 Erickson Zepeda, Front End Software Developer ([facility]) Electronically si... Tony Pandya MD, Pathologist . [...] <-Panic Low,>-Panic High,A-Abnormal,AA-Critical Abnormal Performed at: 02 WB [facility] [address] [phone] Lyubov Preciado MD, Interpretation and review of laboratory results Abnormal [facility] BRUSH-SPATULA CERVIX ENDOCERVIX [facility] Healthcar e PAP ACOG PANEL 2: 30 to 65on 02-12-2023 . . Normal [facility] Comment on above: Result Comment: Perf ormed at: WB Performed By: #### [id number] #### [facility] [address] [place] [address] Dr. Jarad Reddy Age Gdln ACOG Testing 30-65 Normal [facility] Comment on above: Performed By: #### [id number] #### [facility] [address] [address] [address] Jarad Reddy DIAGNOSIS: Comment Normal [facility] Comment on above: Result Comment: NEGA TIVE FOR INTRAEPITHELIAL LESION OR MALIGNANCY. Performed at: WB Performed By: #### [id number] #### [facility] [address] [address] [address] Jarad Reddy HPV Aptima Positive Abnormal Negative [facility] Comment on above: Result Comment: This nucleic acid amplification test detects fourteen high-risk HPV types (16,18,31,33,35,39,45,51,52,56,58,59,66,68) without differentiation. Performed at: =G Performed By: #### [id number] #### [facility] [address] [address] [address] Jarad Reddy HPV Genotype 16 Negative Normal Negative [facility] Comment on above: Performed By: #### [id number] #### [facility] [address] [address] [address] Jarad Reddy HPV Genotype 18,45 Negative Normal Negative [facility] Comment on above: Performed By: #### [id number] #### [facility] [address] [address] [address] Jarad Reddy HPV Genotype Reflex Comment Normal [facility] Comment on above: Result Comment: Wilma ramirez, see HPV Genotype results. Performed at: WB Performed By: #### [id number] #### [facility] [address] [address] [address] Jarad Reddy Methodology: Comment Normal [facility] Comment on above: Result Comment: This liquid based ThinPrep(R) pap test was screened with the use of an image guided system. Performed at: WB Performed By: #### [id number] #### [facility] [address] [address] [address] Jarad Reddy Note: Comment Normal [facility] Comment on above: Result Comment: The Pap smear is a screening test designed to aid in the detection of premalignant and malignant conditions of the uterine cervix. It is not a diagnostic procedure and should not be used as the sole means of detecting cervical cancer. Both false-positive and false-negative reports do occur. . Performed at: WB Performed By: #### [id number] #### [facility] [address] [address] [address] Jarad Reddy Performed by: Comment Normal [facility] Comment on above: Result Comment: Pastor Zepeda, Front End Software Developer (ASCP) Performed at: WB Performed By: #### [id number] #### [facility] [address] [address] [address] Jarad Reddy Specimen adequacy: Comment Normal [facility] Comment on above: Result Comment: Sati sfactory for evaluation. Endocervical and/or squamous metaplastic cells (endocervical component) are present. Performed at: WB Performed By: #### [id number] #### [facility] [address] [address] [address] Jarad Reddy Pap IG, rfx Aptima HPV ASCU + Ct/Ngon 09-18-2022 . . Normal [facility] Comment on above: Result Comment: Perf ormed at: WB Performed By: #### P [id number] #### [facility] [address] [place] [address] Dr. aJrad Reddy Chlamydia, Nuc. Acid Amp Negative Normal Negative [facility] Comment on above: Result Comment: Perf ormed at: =G Performed By: #### P APHR8A #### [facility] [address] [place] [address] Dr. Jarad Reddy DIAGNOSIS: Comment Abnormal [facility] Comment on above: Result Comment: EPIT HELIAL CELL ABNORMALITY. ATYPICAL SQUAMOUS CELLS OF UNDETERMINED SIGNIFICANCE (ASC-US). Performed at: WB Performed By: #### P APHR8A #### [facility] [address] [place] [address] Dr. Jarad Reddy Electronically signed by: Comment Normal [facility] Comment on above: Result Comment: Talia Russo MD, Pathologist Performed at: WB Performed By: #### P APHR8A #### [facility] [address] [place] [address] Dr. Jarad Reddy Gonococcus, Nuc. Acid Amp Negative Normal Negative [facility] Comment on above: Result Comment: Perf ormed at: =G Performed By: #### P APHR8A #### [facility] [address] [place] [address] Dr. Jarad Reddy HPV Aptima Positive Abnormal Negative [facility] Comment on above: Result Comment: This nucleic acid amplification test detects fourteen high-risk HPV types (16,18,31,33,35,39,45,51,52,56,58,59,66,68) without differentiation. Performed By: #### P APHR8A #### [facility] [address] [address] [address] Jarad Reddy Methodology: Comment Normal [facility] Comment on above: Result Comment: This liquid based ThinPrep(R) pap test was screened with the use of an image guided system. Performed at: WB Performed By: #### P APHR8A #### [facility] [address] [address] [address] Jarad Reddy Note: Comment Normal [facility] Comment on above: Result Comment: The Pap smear is a screening test designed to aid in the detection of premalignant and malignant conditions of the uterine cervix. It is not a diagnostic procedure and should not be used as the sole means of detecting cervical cancer. Both false-positive and false-negative reports do occur. . Performed at: WB Performed By: #### P APHR8A #### [facility] [address] [place] [address] Dr. Jarad Reddy Pathologist Provided ICD10 Comment Normal [facility] Comment on above: Result Comment: R87. 610 Performed at: WB Performed By: #### P APHR8A #### [facility] [address] [place] [address] Dr. Jarad Reddy Performed by: Comment Normal [facility] Comment on above: Result Comment: Vu Tierney, Front End Software Developer Performed at: BA Performed By: #### P APHR8A #### [facility] [address] [place] [address] Dr. Jarad Reddy Reflex Criteria: Comment Normal [facility] Comment on above: Result Comment: See below for HPV testing results. . Performed at: WB Performed By: #### P APHR8A #### [facility] [address] [place] [address] Dr. Jarad Reddy Specimen adequacy: Comment Normal [facility] Comment on above: Result Comment: Sati sfactory for evaluation. Endocervical and/or squamous metaplastic cells (endocervical component) are present. Performed at: WB Performed By: #### P APHR8A #### [facility] [address] [place] [address] Dr. Jarad Reddy Vital Signs Date Time Vital Sign Value Performing Clinician Facility 08-29-2025 15:05-0400 Body mass index (BMI) [Ratio] 24.1 kg/m2 [employer] Work Phone: [facility] 08-29-2025 15:05-0400 Body weight 65.68 kg Dana Wagner [employer] Work Phone: [facility] 08-29-2025 15:05-0400 Diastolic blood pressure 68 mm[Hg] DanaScholarooo [employer] Work Phone: [facility] 08-29-2025 15:05-0400 Systolic blood pressure 110 mm[Hg] Dana Script[employer] Work Phone: [facility] 04-29-2025 10:01-0400 Body height 165.1 cm Annalee Lr MD Work Phone: [facility] 04-29-2025 10:01-0400 Body mass index (BMI) [Ratio] 23.26 kg/m2 Annalee Lr MD Work Phone: [facility] 04-29-2025 10:01-0400 Body temperature 97.81 [degF] Annalee Lr MD Work Phone: [facility] 04-29-2025 10:01-0400 Body weight 63.41 kg Annalee Lr MD Work Phone: [facility] 04-29-2025 10:01-0400 Diastolic blood pressure 68 mm[Hg] Annalee Lr MD Work Phone: [facility] 04-29-2025 10:01-0400 Heart rate 84 /min Annalee Lr MD Work Phone: [facility] 04-29-2025 10:01-0400 SaO2% (BldA) [Mass fraction] 98 % Annalee Lr MD Work Phone: [facility] 04-29-2025 10:01-0400 Systolic blood pressure 124 mm[Hg] Annalee Lr MD Work Phone: [facility] 03-01-2025 13:10-0400 Body mass index (BMI) [Ratio] 24.26 kg/m2 Dana Wagner DO Work Phone: [facility] 03-01-2025 13:10-0400 Body weight 66.13 kg Dana Wagner DO Work Phone: [facility] 03-01-2025 13:10-0400 Diastolic blood pressure 68 mm[Hg] Dana Wagner DO Work Phone: [facility] 03-01-2025 13:10-0400 Systolic blood pressure 120 mm[Hg] Dana Wagner DO Work Phone: [facility] 12-24-2024 09:35-0500 Body height 165.1 cm Annalee Lr MD Work Phone: [facility] 12-24-2024 09:35-0500 Body mass index (BMI) [Ratio] 23.56 kg/m2 Annalee Lr MD Work Phone: [facility] 12-24-2024 09:35-0500 Body temperature 97.11 [degF] Annalee Lr MD Work Phone: [facility] 12-24-2024 09:35-0500 Body weight 64.23 kg Annalee Lr MD Work Phone: [facility] 12-24-2024 09:35-0500 Diastolic blood pressure 85 mm[Hg] Annalee Lr MD Work Phone: [facility] 12-24-2024 09:35-0500 Heart rate 70 /min Annalee Lr MD Work Phone: [facility] 12-24-2024 09:35-0500 Systolic blood pressure 122 mm[Hg] Annalee Lr MD Work Phone: [facility] 08-30-2024 16:25-0400 Body mass index (BMI) [Ratio] 23.63 kg/m2 Dana Wagner DO Work Phone: [facility] 08-30-2024 16:25-0400 Body weight 64.41 kg Dana Wagner DO Work Phone: [facility] 08-30-2024 16:25-0400 Diastolic blood pressure 72 mm[Hg] Dana Wagner DO Work Phone: [facility] 08-30-2024 16:25-0400 Systolic blood pressure 122 mm[Hg] Dana Wagner DO Work Phone: [facility] 08-10-2024 15:20-0400 Body height 165.1 cm Dana Wagner DO Work Phone: [facility] 08-10-2024 15:20-0400 Body mass index (BMI) [Ratio] 22.47 kg/m2 Dana Wagner DO Work Phone: [facility] 08-10-2024 15:20-0400 Body weight 61.24 kg Dana Wagner DO Work Phone: [facility] 08-10-2024 15:20-0400 Diastolic blood pressure 82 mm[Hg] Dana Wagner DO Work Phone: [facility] 08-10-2024 15:20-0400 Systolic blood pressure 122 mm[Hg] Dana Wagner DO Work Phone: [facility] Encounters Encounter Date Encounter Type Care Provider Facility Start: 08-29-2025 End: 08-29-2025 Office outpatient visit 15 minutes [facility] Wagner [facility] Comment on above: ASCUS with positive high risk HPV cervical Start: 08-29-2025 End: 08-29-2025 Bamboo flowsheet Dana Wagner DO Work Phone: [facility] Start: 08-29-2025 End: 08-29-2025 Bamboo flowsheet Dana Wagner DO Work Phone: [facility] Start: 04-29-2025 End: 04-29-2025 Office outpatient visit 15 minutes Annalee Lr MD Work Phone: [facility] Comment on above: Nausea (Primary Dx) Start: 04-29-2025 End: 04-29-2025 ambulatory [facility] Start: 03-01-2025 End: 03-01-2025 Bamboo flowsheet Dana Wagner DO Work Phone: [facility] Start: 03-01-2025 End: 03-08-2025 Bamboo flowsheet Dana Wagner DO Work Phone: [facility] Start: 03-01-2025 End: 03-08-2025 Clinisync Result Encounter Dana Wagner DO Work Phone: [facility] Unsolicited Start: 03-01-2025 End: 03-01-2025 Office outpatient visit 15 minutes Dana Wagner DO Work Phone: [facility] Comment on above: ASCUS with positive high risk HPV cervical Start: 03-01-2025 End: 03-01-2025 ambulatory DANA WAGNER Not Available Start: 12-24-2024 End: 12-24-2024 Office outpatient visit 15 minutes Annalee Lr MD Work Phone: [facility] Comment on above: Sebaceous cyst (Prim jose Dx) Start: 12-24-2024 End: 12-24-2024 ambulatory [facility] Start: 08-30-2024 End: 08-30-2024 Patient encounter procedure Dana Wagner DO Work Phone: [facility] Comment on above: ASCUS with positive high risk HPV cervical Start: 08-30-2024 End: 08-30-2024 ambulatory DANA WAGNER Not Available Start: 08-17-2024 End: 08-17-2024 Telephone encounter Bambi Dendinger [employer]HER Work Phone: [facility] Start: 08-10-2024 End: 08-10-2024 Patient encounter procedure Dana Wagner DO Work Phone: [facility] Start: 08-10-2024 End: 08-10-2024 Periodic preventive med est patient 18-39 yrs Dana Wagner DO Work Phone: [facility] Comment on above: Well woman exam with routine gynecological exam Start: 08-10-2024 End: 08-10-2024 ambulatory DANA WAGNER Not Available Start: 08-10-2024 End: 08-17-2024 Clinisync Result Encounter Dana Wagner DO Work Phone: [facility] Unsolicited Start: 08-10-2024 End: 08-17-2024 Clinisync Result Encounter Dana Wagner DO Work Phone: [facility] Unsolicited Start: 12-12-2023 Telephone encounter Annalee carbone MD Work Phone: [facility] Start: 02-03-2023 End: 02-03-[address] DANA EDWARD . Facility:[facility] Start: 09-10-2022 Encounter for cervic al smear to confirm findings of recent normal smear following initial abnormal smear DR DANA EDWARD . [facility] Start: 09-09-2022 End: 09-09-[address] DANA EDWARD . Facility:[facility] Start: 09-09-2022 End: 09-09-2022 Encounter for cervical smear to confirm findings of recent normal smear following initial abnormal smear DR DANA EDWARD . Facility:[facility] Procedures Date Procedure Procedure Detail Performing Clinician Start: 03-01-2025 Urnls dip stick/tabl et rgnt non-auto w/o micrscp Dana Wagner DO Work Phone: Start: 03-01-2025 [facility] IGP,RFX APTIMA H PV ALL PTH Dana Wagner DO Work Phone: Start: 03-01-2025 Microscopic observat ion [Identifier] in Cervix by Cyto stain Annalee Lr MD Work Phone: Start: 08-31-2024 COLPOSCOPY Danakaren Cerda o DO Work Phone: Start: 08-30-2024 Urine test visual color cmprsn meths Dana Wagner DO Work Phone: Start: 08-10-2024 IGP,APTIMA HPV,AGE GDLN Dana Wagner DO Work Phone: Start: 08-10-2024 Microscopic observat ion [Identifier] in Cervix by Cyto stain Dana Wagner DO Work Phone: Start: 06-19-2021 Adult depression scr eening assessment Annalee Lr MD Work Phone: Plan of Treatment Date Care Activity Detail Author Start: 05-29-2032 DTaP,Tdap and Td Vaccines (8 - Td or Tdap) DTaP,Tdap and Td Vaccines (8 - Td or Tdap) [facility] Start: 03-01-2028 Screening for malign ant neoplasm of cervix [facility] Start: 08-10-2027 Screening for malign ant neoplasm of cervix [facility] Start: 04-29-2026 Adult BMI Screening Adult BMI Screen ing [facility] Start: 04-29-2026 Tobacco Screening Tobacco Screening [facility] Start: 03-01-2026 Screening for malign ant neoplasm of cervix Pap Smear [facility] Start: 08-29-2025 End: 08-29-2025 Patient encounter procedure [facility] Comment on above: Arrived Start: 08-17-2025 End: 08-17-2025 Patient encounter procedure 08/17/2025 3:00 PM EDT Office Visit [facility] [address] [place] [address] Dana Edward, DO [address] [place] [address] [facility] Start: 08-10-2025 Screening for malign ant neoplasm of cervix Pap Smear [facility] Start: 07-11-2025 Influenza vaccination [facility] Start: 03-01-2025 End: 03-01-2025 Patient encounter procedure [facility] Comment on above: Arrived Start: 10-10-2024 Adult BMI Screening Adult BMI Screen ing [facility] Start: 10-10-2024 Tobacco Screening Tobacco Screening [facility] Start: 08-30-2024 End: 08-30-2025 Colposcopy Colposcopy Procedures Routine ASCUS with positive high risk HPV cervical Expected: 08/30/2024 (Approximate), Expires: 08/30/2025 [facility] Work Phone: Comment on above: Expected: 08/30/2024 (Approximate), Expires: 08/30/2025 Start: 07-11-2024 COVID-19 Vaccine ( season) COVID-19 Vaccine () [facility] Start: 07-11-2024 Influenza vaccination [facility] Start: 07-11-2023 COVID-19 Vaccine ( season) COVID-19 Vaccine ( season) [facility] Start: 07-11-2023 Influenza vaccination Influenza Vacc ine [facility] Start: 06-19-2022 Depression Screening Depression Scre ing [facility] Start: 2016 Screening for malign ant neoplasm of cervix [facility] Start: 2007 Screening for malign ant neoplasm of cervix Pap Smear [facility] Start: 1998 Depression Screening Depression Scre [facility] Cytology Cervical or vaginal smear or scraping study Pap Smear Pathology and Cytology Routine Well woman exam with routine gynecological exam Ordered: 08/10/2024 [facility] Work Phone: Comment on above: Ordered: 08/10/2024 Cytology Cervical or vaginal smear or scraping study Pap Smear Pathology and Cytology Routine ASCUS with positive high risk HPV cervical Ordered: 03/01/2025 [facility] Work Phone: Comment on above: Ordered: 03/01/2025 Cytology Cervical or vaginal smear or scraping study Pap Smear Pathology and Cytology Routine ASCUS with positive high risk HPV cervical Ordered: 08/29/2025 [facility] Work Phone: Comment on above: Ordered: 08/29/2025 Human papilloma viru s DNA [Presence] in Unspecified specimen by Probe with amplification HPV DNA probe, amplified Microbiology Routine Well woman exam with routine gynecological exam Ordered: 08/10/2024 [facility] Comment on above: Ordered: 08/10/2024 Human papilloma viru s DNA [Presence] in Unspecified specimen by Probe with amplification HPV DNA probe, amplified Microbiology Routine ASCUS with positive high risk HPV cervical Ordered: 03/01/2025 [facility] Comment on above: Ordered: 03/01/2025 Human papilloma viru s DNA [Presence] in Unspecified specimen by Probe with amplification HPV DNA probe, amplified Microbiology Routine ASCUS with positive high risk HPV cervical Ordered: 08/29/2025 [facility] Comment on above: Ordered: 08/29/2025 Immunizations Immunization Date Immunization Notes Care Provider [facility] 03-06-2021 COVID-19, mRNA, LNP- S, PF, 100mcg/0.5mL Dose Annalee Lr MD Work Phone: [facility] 02-06-2021 COVID-19, mRNA, LNP- S, PF, 100mcg/0.5mL Dose Annalee Lr MD Work Phone: [facility] 08-02-2015 influenza virus vaccine, unspecified formulation Annalee Lr MD Work Phone: [facility] Payers Date Payer Category Payer [facility] [id number] 2024 Unknown [id number] 2021 Unknown [id number] 2021 Unknown [id number] 2016 Unknown [id number] 1986 Unknown [id number] 1986 Unknown [id number] 1986 Unknown [id number] 1986 Unknown [id number] 1986 Unknown [id number] 1959 Unknown [id number] Social History Date Type Detail Facility Start: 08-10-2024 Tobacco smoking status COIS Ex-smoker [facility] End: 11-10-2017 History of tobacco use Current smoker [facility] End: 11-10-2017 History of tobacco use Cigarette Smoker [facility] Start: 06-19-2021 End: 08-10-2024 Tobacco use and exposure Smokeless tobacco non-user [facility] Start: 08-10-2024 End: 08-29-2025 Alcoholic beverage intake Lifetime non-drinker (finding) [facility] Start: 08-10-2024 End: 08-30-2024 History of Social function [facility] Start: 08-10-2024 End: 08-30-2024 Tobacco use panel [facility] Start: 1985 Sex assigned at Female [facility] Start: 08-03-2023 Gender identity Identifies as female gender (finding) [facility] Start: 08-03-2023 Sexual orientation Heterosexual (finding) [facility] Start: 06-19-2021 Tobacco smoking status [facility] Never smoked tobacco [facility] Start: 12-24-2024 End: 04-29-2025 Alcoholic beverage intake Current drinker of alcohol (finding) [facility] Start: 01-22-2023 Adolescent depression screening assessment 0 [facility] Start: 1985 Sex assigned at Not on file [facility] Start: 06-15-2015 Sex Female (finding) [facility] Clinical Notes 12-12-2023 to 08-29-2025 Natalia SawyerHENRI barnes - 08/29/2025 2:40 PM Vielka Lr MD - 04/29/2025 10:00 AM Starla Jama LPN - 03/01/2025 1:00 PM Vielka Lr MD - 12/24/2024 9:45 AM EST Note Date & Type Note Facility 08-29-2025 History of Presen t illness Narrative Reason for Appointment: Patient ID: Lakshmi Camilo is a 40 y.o. female who presents for Well Women Visit Patient presents today for Consult appointment. 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 HISTORY PAST MEDICAL HISTORY SOCIAL HISTORY Past Medical History: Diagnosis Date Abnormal Pap smear of cervix Abnormal uterine bleeding Asthma (HCC) 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 Exam conducted with a quality control engineering technician present. Vitals: Estimated body mass index is 24.1 kg/m as calculated from the following: Height as of 08/10/24: 5' 5 . Weight as of this encounter: 144 lb 12.8 oz. BP: 110/68 No LMP recorded. (Menstrual status: IUD). Assessment/Plan ICD-10-CM 1. ASCUS with positive high risk HPV cervical R87.610 Pap Smear R87.810 HPV DNA probe, amplified Repeat Pap: Patient presents today for a repeat pap. Previous pap results were reviewed and noted to be ASCUS. Question regarding previous results were discussed. Repeat Pap was obtained without difficulty. Follow Up: Patient is to return to the office in 6 months for an annual exam. Documented by Natalia Campos LPN on behalf of: Dana Edward DO documented in this encounter [facility] 04-29-2025 History of Presen t illness Narrative Subjective Patient ID: Lakshmi Camilo is a 39 y.o. female. She started earlier this week with a feeling of queasy stomach or nausea. She notes a little bit of associated headache. No fever. No diarrhea. She has not eaten very much. She was trying to drink water. She has been able to go to work this week and for the most part go about her usual business but she has been tired feeling. She drank some bland chicken broth and that seemed to burn the roof of her mouth and her throat but that sensation has gone away. Today she vomited stomach content that appeared orange. No blood. She has the nausea feeling but does not have localized or severe abdominal pain. The following portions of the patient's history were reviewed and updated as appropriate: allergies, current medications, past medical history, past social history, past surgical history, and problem list. Review of Systems Objective Physical Exam Constitutional: Comments: Afebrile. She does not feel well but does not appear acutely distressed. HENT: Right Ear: Tympanic membrane normal. Left Ear: Tympanic membrane normal. Nose: No congestion. Mouth/Throat: Pharynx: No oropharyngeal exudate or posterior oropharyngeal erythema. Comments: No oral lesions Eyes: General: No scleral icterus. Cardiovascular: Rate and Rhythm: Normal rate and regular rhythm. Heart sounds: No murmur heard. Pulmonary: Effort: Pulmonary effort is normal. Breath sounds: Normal breath sounds. Abdominal: General: There is no distension. Palpations: Abdomen is soft. Comments: Abdomen is not really tender to palpation Lymphadenopathy: Cervical: No cervical adenopathy. Skin: Capillary Refill: Capillary refill takes less than 2 seconds. Neurological: General: No focal deficit present. Assessment/Plan Exam is reassuring. Her state of hydration appears reasonable without significant dehydration. No neurological symptoms to suggest the nausea is central in origin. She seems to have a gastroenteritis type bug, likely self-limited. I am not sure why she had burning in her throat but her pharynx appears normal by exam at this time. Will try to control the nausea symptom and she will take fluids as tolerated. Further pending her course. Diagnoses and all orders for this visit: Nausea - ondansetron ODT (ZOFRAN ODT) 4 mg disintegrating tablet; Dissolve 1 tablet (4 mg total) on tongue every 6 (six) hours as needed for nausea or vomiting. documented in this encounter [facility] 03-01-2025 History of Presen t illness Narrative Reason for Appointment: Patient ID: Lakshmi Camilo is a 39 y.o. female who presents for Abnormal Pap Smear Patient presents today for Repeat Pap. MEDICATIONS Current Outpatient Medications Medication Instructions Mirena (52 MG) 53 mg, As needed ALLERGIES No Known Allergies PROBLEMS Active Ambulatory Problems Diagnosis Date Noted No Active Ambulatory Problems Resolved Ambulatory Problems Diagnosis Date Noted No Resolved Ambulatory Problems Past Medical History: Diagnosis Date Abnormal Pap smear of cervix Abnormal uterine bleeding Asthma Dysplasia of cervix HPV (human papilloma virus) infection HISTORY PAST MEDICAL HISTORY SOCIAL HISTORY Past Medical History: Diagnosis Date Abnormal Pap smear of cervix Abnormal uterine bleeding Asthma Dysplasia of cervix HPV (human papilloma virus) infection Social History Tobacco Use Smoking status: Former Current packs/day: 0.00 Types: Cigarettes Quit date: 11/10/2017 Years since quittin.3 Smokeless tobacco: Never Substance Use Topics Alcohol use: Never Drug use: Never FAMILY HISTORY Family History Problem Relation Name Age of Onset Breast cancer Other Grandmother Breast cancer Maternal Grandmother Tova lafleur SURGICAL HISTORY Past Surgical History: Procedure Laterality Date CERVICAL BIOPSY W/ LOOP ELECTRODE EXCISION 2009 PAP SMEAR 01/29/2022 ASCUS HPV+ REVIEW OF [...] nursing note reviewed. Exam conducted with a quality control engineering technician present. Vitals: Estimated body mass index is 24.26 kg/m as calculated from the following: Height as of 08/10/24: 5' 5 . Weight as of this encounter: 145 lb 12.8 oz. BP: 120/68 No LMP recorded. Patient has had an implant. ASSESSMENT & PLAN ICD-10-CM 1. ASCUS with positive high risk HPV cervical R87.610 Pap Smear R87.810 HPV DNA probe, amplified POCT , urine manually resulted POCT urinalysis dipstick manually resulted Repeat Pap: Patient presents today for a repeat pap. Previous pap results were reviewed and noted to be ASCUS and + HPV. Question regarding previous results were discussed. Repeat Pap was obtained without difficulty. Follow Up: Patient is to return to the office in 6 months for an annual exam. Documented by Saskia Jama LPN on behalf of: Dana Edward DO documented in this encounter [facility] 12-24-2024 History of Presen t illness Narrative Subjective Patient ID: Lakshmi Camilo is a 39 y.o. female. Comes in after noting a lump on her left forearm. It does not hurt. She knows of no trauma to the area. She has not noted any similar lumps anywhere else. No sickness or systemic symptoms. The following portions of the patient's history were reviewed and updated as appropriate: allergies, current medications, past medical history, past social history, and problem list. Review of Systems Objective Physical Exam Constitutional: Comments: She appears well. Skin: Comments: Left forearm is heavily tattooed. There is a relatively firm mobile subcutaneous nodule 1 cm in size palpable on the proximal extensor surface of her forearm. It is difficult to see the exact nature of the overlying skin given the tattoos but there does not appear to be a definite pore. The nodule is not tender. Assessment/Plan Reviewed with her. This does not have characteristics that raise suspicion for malignancy. I do not think it is a lipoma due to its consistency and relatively distinct margins. It seems mobile which is a good thing. Most likely this is a sebaceous cyst. She is going to monitor it for now. I did discuss with her potential surgical removal for definitive diagnosis but it is not suspicious and is asymptomatic and observation is likely the correct course. If it is changing it should be re-evaluated. Diagnoses and all orders for this visit: Sebaceous cyst documented in this encounter [facility] 08-30-2024 History of Presen t illness Narrative Associated Order(s): Colposcopy Post-Procedure Diagnose(s): ASCUS with positive high risk HPV cervical Reason for Appointment: Patient ID: Lakshmi Camilo is a 39 y.o. female who [...] nursing note reviewed. Exam conducted with a quality control engineering technician present. Vitals: Estimated body mass index is [...] and paperwork was sent with sample to [facility] with sample. Follow Up: Patient is to return in 6 months for Repeat Pap. Documented by Natalia Campos LPN on behalf of: Dana Edward DO documented in this encounter [facility] 08-17-2024 Telephone encounter Note Pt called wanting [...] will probably not hear back until Friday.[facility] Work Phone: 08-17-2024 Miscellaneous Notes Pt called [...] back until Friday.[facility] documented in this encounter [facility] 08-10-2024 History of Presen t illness Narrative Reason for Appointment: Patient ID: Lakshmi Camilo is a 39 y.o. female who [...] Date CERVICAL BIOPSY W/ LOOP ELECTRODE EXCISION 2009 PAP SMEAR 01/29/2022 ASCUS HPV+ REVIEW OF [...] nursing note reviewed. Exam conducted with a quality control engineering technician present. Vitals: Estimated body mass index is [...] Dana Edward DO documented in this encounter [facility] 12-12-2023 Miscellaneous Notes February called and is wondering if something could be called in for her since she just had her daughter Nimco Acuna in yesterday, and she thinks she has the same thing as her, she woke up with a terrible sore throat today. [facility] [place] if you can do that Please advise Script sent. Spoke with Lakshmi and she was appreciative of the call and the medicine being called in. documented in this encounter [facility] 12-12-2023 Telephone encounter Note Lakshmi called and is wondering if something could be called in for her since she just had her daughter Nimco Acuna in yesterday, and she thinks she has the same thing as her, she woke up with a terrible sore throat today. [facility] [place] if you can do that Please advise [facility] 12-12-2023 Telephone encounter Note Script sent. [facility] 12-12-2023 Telephone encounter Note Spoke with Lakshmi and she was appreciative of the call and the medicine being called in. [facility] Evaluation note Diagnosis Well woman exam with routine gynecological exam Routine gynecological examination documented [facility] encounter [facility]* Diagnosis ASCUS with positive high risk HPV cervical documented in this [facility]* Diagnosis Sebaceous cyst- Primary documented in this encounter [facility]* Diagnosis Nausea- Primary Nausea alone documented in this encounter [facility]* Diagnosis ASCUS with positive high risk HPV cervical documented in this encounter [facility] HealthcareInstructionsNot on filedocumented in this [facility] SystemInstructionsNot on filedocumented in this encounterProOhio[facility] SystemInstructionsNot on filedocumented in this encounterProOhiohealth [facility] Summary Purpose Family History No Family History Records FoundNo Family History Records FoundNo Family History Records Found Advance Directives No Advanced Directives Records FoundNo Advanced Directives Records FoundNo Advanced Directives Records Found Additional Source Comments INFORMATION SOURCE (unrecogn ized section and content) DATE CREATED AUTHOR 03/15/2023 [facility] DATE CREATED AUTHOR AUTHOR'S ORGANIZ ATION 03/02/2025 [facility] EPIC DATE CREATED AUTHOR AUTHOR'S ORGANIZ ATION 05/02/2025 [facility] Reason for Visit (unrecogniz ed section and content) Reason Comments Well Women Visit Reason Comments Abnormal Pap Smear Pt present today for a Colposcopy visit. Pt had an abnormal pap smear on 08/10/2024 w/ASCUS HPV+ Reason Comments Mass Left forearm Reason Comments Abnormal Pap Smear Reason Comments Fatigue Nausea Vomiting Headache Care Teams (unrecognized sec tion and content) Tie Man Relationship Specialty Start Date End Date Annalee Lr MD [address] [place] [address], [address] [place] [address] PCP - General Family Medicine 08/05/23 Tie Man Relationship Specialty Start Date End Date Annalee Lr MD [address] [place] [address], [address] [place] [address] PCP - General Family Medicine 08/05/23 Tie Man Relationship Specialty Start Date End Date Annalee Lr MD [address] [place] [address], [address] [place] [address] PCP - General Family Medicine 08/05/23 Tie Man Relationship Specialty Start Date End Date Annalee Lr MD [address] [place] [address], [address] [place] [address] PCP - General Family Medicine 08/05/23 Tie Man Relationship Specialty Start Date End Date Annalee Lr MD [address] [place] [address], [address] [place] [address] PCP - General Pediatrics 09/28/19 Tie Man Relationship Specialty Start Date End Date Annalee Lr MD PCP - General Family Medicine 08/05/23 Tie Man Relationship Specialty Start Date End Date Annalee Lr MD PCP - General Family Medicine 08/05/23 Tie Man Relationship Specialty Start Date End Date Annalee Lr MD PCP - General Family Medicine 08/05/23 Tie Man Relationship Specialty Start Date End Date Annalee Lr MD [address] [place] [address], [address] [place] [address] PCP - General Pediatrics 09/28/19 Tie Man Relationship Specialty Start Date End Date Annalee Lr MD PCP - General Family Medicine 08/05/23 Tie Man Relationship Specialty Start Date End Date Annalee Lr MD PCP - General Family Medicine 08/05/23 FOR RECORDS PERTAINING TO PATIENTS WHO ARE [...] BE BASED ON THE PRIMARY CLINICAL RECORDS. [facility] [employer] provides no warranty or guarantee of the accuracy or completeness of information in this document.
== END 2025-08-29 20:29 | disposition home or self-care (01) ==
LOC: LAB 20:28
PROVIDERS: Visit Provider Obstetrics & Gynecology
DX: R87.610 Atypical squamous cells of undetermined significance on cytologic smear of cervix (ASC-US) (principal); R87.810 Cervical high risk human papillomavirus (HPV) DNA test positive; R87.612 Low grade squamous intraepithelial lesion on cytologic smear of cervix (LGSIL)
CPT/HCPCS: 87624; 88175